=== PATIENT | female | born 1935 | race Caucasian/White ===

== ENCOUNTER → 2021-08-15 | Outpatient (CLI) | payer MEDICARE ==
--- NOTE | 2021-08-15 15:53 | US ---
EXAMINATION TYPE: US kidneys/renal and bladder DATE OF EXAM: 08/15/2021 COMPARISON: NONE CLINICAL HISTORY: N39.9 UTI. UTI EXAM MEASUREMENTS: Right Kidney: 7.8 x 3.3 x 3.2 cm Left Kidney: 9.5 x 3.4 x 3.7 cm Right Kidney: No hydronephrosis or masses seen Left Kidney: No hydronephrosis or masses seen Bladder: anechoic Bilateral Jets seen: No Some increased cortical echogenicity bilaterally. No concerning solid or cystic masses on images obta ined incidental 1.1 cm thin-walled cyst lower pole of the left kidney. Bladder not greatly distended. No suspicious intraluminal mass. IMPRESSION: Evidence of chronic medical renal disease. No hydronephrosis seen bilaterally.
== END | disposition home or self-care (01) ==
LOC: RADUSWWP 15:15
PROVIDERS: ATTEND Urology
DX: N39.0 Urinary tract infection, site not specified (principal); N18.9 Chronic kidney disease, unspecified
CPT/HCPCS: 76770

== ENCOUNTER → 2022-07-07 | Outpatient (CLI) | payer MEDICARE ==
--- NOTE | 2022-07-09 09:00 | MR ---
EXAMINATION TYPE: MR knee LT wo con DATE OF EXAM: 07/07/2022 COMPARISON: NONE HISTORY: Lt knee inner pain and swelling for 10 days. TECHNIQUE: Multiplanar, multisequence images of the knee is performed without IV contrast. FINDINGS: MEDIAL MENISCUS: Faint oblique signal posterior horn does not definitively extend to articular surfac e. LATERAL MENISCUS: Lateral extrusion lateral meniscus. Marked increased signal on coronal images in th e extruded meniscus Truncated appearance anterior horn with increased signal extending to central bod y and posterior horn. CRUCIATE LIGAMENTS: The anterior and posterior cruciate ligaments are intact and unremarkable. COLLATERAL LIGAMENTS: The medial collateral ligament and lateral collateral ligament complex are inta ct and unremarkable. EXTENSOR MECHANISM: Visualized quadriceps and patellar tendons are intact. EFFUSION: Large size suprapatellar joint effusion. POPLITEAL CYST: Moderate size popliteal/max cyst measuring 5.5 cm long axis sagittal image 22 has a few thin septa along the aspect. Partial insertional tearing medial head of gastrocnemius at the pro ximal posterior distal medial femoral condyle insertion TRICOMPARTMENT SPACES: Severe narrowing with [id number] spurring lateral tibiofemoral compartme nt. Moderate narrowing with mild to moderate spurring medial tibial femoral compartment. Moderate margoth rowing patellofemoral compartment. CARTILAGE: Significant cartilaginous loss lateral tibiofemoral compartment. Some chondromalacia wang la with thinning of articular cartilage along the inferior posterior patellar pole. BONE MARROW SIGNAL: Heterogeneous increased T2 signal involving the lateral aspect of the patella wit h obliquely oriented diminished T1 signal coronal image 7. Additional smaller area of heterogeneous i ncreased T2 signal along the superior medial aspect of the patella. Diminished T1 and increased T2 si gnal lateral tibial plateau. OTHER: No additional significant abnormality is appreciated. IMPRESSION: 1. 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 2. Full-thickness tear involving the entire lateral meniscus. 3. Large suprapatellar joint effusion. 4. Moderate-sized popliteal cyst with partial tearing of attaching tendons and posterior distal later al femoral condyle 5. Areas of abnormal bone marrow edema lateral tibial plateau and superior medial patella along with more prominent area lateral patella and which fracture injury is not entirely excl uded. Correlate clinically and with plain films.
== END | disposition home or self-care (01) ==
LOC: RADMRIMAIN 06:27
PROVIDERS: ATTEND Family Medicine
DX: M17.12 Unilateral primary osteoarthritis, left knee (principal); M25.462 Effusion, left knee; M71.22 Synovial cyst of popliteal space [Baker], left knee